=== PATIENT | male | born 1970 | race African-American/Black ===

== ENCOUNTER 2023-12-17 04:00 | Emergency (ER) | payer MEDICAID ==
[~2023-12-17] VITALS: Ht 180.3 cm; Wt 90.0 kg
[~2023-12-17 04:00] MED LIST: AMLO5TAB88 PO; ATOR20TA65 MT; DOCU-138 PO; HYDR50SY PO; IBUP-2029 MT; LISI20TA31 MT; TRAM50TA3 MT; TRAZ-251 MT; WARF1TAB85 MT
[2023-12-17 04:01] VITALS: TEMP 98.8; O2SAT 98
[2023-12-17] MEDS: HYDROCODONE/ACETAMINOPHEN 10/325MG TABLET PO ONE (05:39)
[2023-12-17 11:55] VITALS: BP 114/68; PULSE 70; RESP 16
== END 2023-12-17 12:23 | disposition home or self-care (01) ==
LOC: ER 04:00
DX: R51.9 Headache, unspecified (principal); Z86.59 Personal history of other mental and behavioral disorders
CPT/HCPCS: 99283